=== PATIENT | male | born 1965 | race Caucasian/White ===

== ENCOUNTER → 2017-02-11 | Day surgery (SDC) | payer OTHER, BC ==
[~2017-02-11] MED LIST: Lactated Ringers 1,000 ML IV SCH; Propofol 200 MG/20 ML SDV IV ONE
[2017-02-11 13:02] VITALS: BP 144/88
--- NOTE | 2017-02-14 07:17 | OR ---
DATE OF OPERATION: 02/11/2017 PREOPERATIVE DIAGNOSIS: SCREENING COLONOSCOPY. POSTOPERATIVE DIAGNOSIS: SCREENING COLONOSCOPY. SURGEON: Herrera Lee MD PROCEDURE: FULL-LENGTH COLONOSCOPY WITH POLYP REMOVAL X3. ANESTHESIA: [employer]. COMPLICATIONS: None. SPECIMEN: Three hyperplastic polyps. FINDINGS: 1. Full-length colonoscopy. 2. Three hyperplastic polyps 2 in cecum, one in rectum. RECOMMENDATIONS: Followup colonoscopy in 5 years. INDICATIONS: The patient was in for a physical. Dr. Rivero recommended a screening procedure. DESCRIPTION OF PROCEDURE: The patient was prepped and draped, placed in left lateral decubitus position. A lubricated Olympus colonoscope was inserted and easily advanced to the cecum. Direct visualization of the ileocecal valve and appendiceal orifice was accomplished. The bowel prep was fine. Upon withdrawal of the scope, the patient had 2 small flat hyperplastic polyps in the cecal pouch. Both removed in their entirety with cold forceps biopsy x1. The rest of the ascending, transverse, descending colons were completely benign. Thorough evaluation of the sigmoid and rectosigmoid area revealed no polyps, mass, ulceration, or bleeding sites. There were no vascular abnormalities or signs of colitis. No signs of diverticula. In the rectal vault, the patient had another small hyperplastic polyp removed with cold forceps. Retroflexion showed no perianal lesions. Air was then suctioned and the scope was removed without complication. PARDEEP/SRI /[id number]
== END ==
LOC: CC.SDS 11:23
PROVIDERS: ATTEND Family Medicine
DX: Z12.11 Encounter for screening for malignant neoplasm of colon (principal); D12.0 Benign neoplasm of cecum; K62.1 Rectal polyp; I10 Essential (primary) hypertension; N40.0 Benign prostatic hyperplasia without lower urinary tract symptoms; E55.9 Vitamin D deficiency, unspecified; Z79.82 Long term (current) use of aspirin; Z79.899 Other long term (current) drug therapy
CPT/HCPCS: 45380; J2704; J7120

== ENCOUNTER 2022-08-18 15:43 | Emergency (ER) | payer OTHER, BC ==
[2022-08-18 15:47] VITALS: BP 158/95; PULSE 81
[2022-08-18] MEDS: Diphtheria,Pertussis(Acell),Tetanus Vaccine 0.5 ML Syringe IM ONE (16:32)
[2022-08-18] MEDS: Tranexamic Acid 1,000 MG in Sodium Chloride 0.9% 100 ML IV ONE (16:36)
[2022-08-18] MEDS: HYDROmorphone 1 MG/ML Syringe ONE (16:36)
[2022-08-18] MEDS: HYDROmorphone 1 MG/ML Syringe IVPUSH ONE (16:36)
[2022-08-18] MEDS: Tranexamic Acid 1,000 MG in Sodium Chloride 0.9% 500 ML IV ONE (16:38)
[2022-08-18] MEDS: Lactated Ringers 1,000 ML IV ONE (16:38)
[2022-08-18 16:50] LABS: CHLORIDE,CL 105 mEq/L (98-106); ESTIMATED GFR 64 mL/min (>=60); SODIUM,NA 141 mEq/L (136-145)
== END 2022-08-18 17:00 ==
LOC: CC.ED 15:43
DX: S01.01XA Laceration without foreign body of scalp, initial encounter (principal); S01.80XA Unspecified open wound of other part of head, initial encounter; I77.2 Rupture of artery; Z79.899 Other long term (current) drug therapy; Z23 Encounter for immunization; W20.8XXA Other cause of strike by thrown, projected or falling object, initial encounter
CPT/HCPCS: 36415; 70450; 70486; 80053; 85025; 86140; 86850; 86900; 86901; 90471; 90715; 96365; 96375; 99284; 99285; J1170; J3490; J7040; J7120